=== PATIENT | male | born 1985 | race Two or more races ===

== ENCOUNTER 2017-02-21 15:01 | Emergency (ER) | payer OTHER ==
[~2017-02-21] VITALS: Ht 172.7 cm; Wt 84.8 kg
--- NOTE | 2017-02-21 15:28 | Emergency Room Report ---
History of Present Illness General Chief Complaint: To Be Triaged Present Illness HPI 32 y/o male c/o burn to left hand that occurred at 11:40am at work. States he had spilled hot oil and now has ventura to left hand that is blistering. Better with cold / ice and worse with palpation. No other modifying factors. Not on any medications currently. Allergies: Coded Allergies: No Known Allergies (Unverified , 02/21/17) Patient History Limited by: language barrier Past Medical History: see triage record Past Surgical History: none Pertinent Family History: none Reviewed Nursing Documentation: PMH: Agreed, PSxH: Agreed Review of Systems All Other Systems: negative except mentioned in HPI Physical Exam Sp02 EP Interpretation: reviewed, normal General Appearance: no apparent distress, alert, GCS 15, non-toxic Head: normocephalic, atraumatic Respiratory: normal breath sounds, no respiratory distress, speaking full sentences Cardiovascular #1: regular rate, rhythm, no edema Medical Decision Making PA Attestation Dr. Britton is my supervising physician with whom patient management has been discussed with. Diagnostic Impression: Primary Impression: Burn of hand, left, second degree Qualified Codes: T23.202A - Burn of second degree of left hand, unspecified site, initial encounter ER Course Pt. presents to the ED c/o burn of left hand. Ddx considered but are not limited to abraision, trauma, contusion, 1st degree burn, 2nd degree burn, 3rd degree burn, 4th degree burn Vital signs: are WNL, pt. is afebrile H&PE are most consistent with 2nd degree burn of left hand ORDERS: none required at this time, the diagnosis is clinical ED INTERVENTIONS: Tdap, initially Wet to dry dressing and later changed to Silvadene dressing with bulky gauze dressing at time of discharge. DISCHARGE: At this time pt. is stable for d/c to home. Will provide printed patient care instructions, and any necessary prescriptions. Care plan and follow up instructions have been discussed with the patient prior to discharge. Disposition: HOME, SELF-CARE - Patient is to follow up for wound check in 1-2 days Condition: Stable Scripts Silver Sulfadiazine (SILVADENE) 20 Gm Cream..g. 1 APPLIC TP BID for 5 Days, #20 GM Prov: EVA GODOY 5/14/17 Patient Instructions: Burn Care Additional Instructions: Keep wound clean and dry. Patient advised to follow up for wound check within 1- 2 days. Use medication as directed. Stay well hydrated as ventura need water for healing. Avoid sun exposure to minimize scarring. Patient advised that they can take a shower or bath, but be sure to pat the area dry with a towel afterward. Patient should come back sooner if they experience any red areas that get bigger , more swollen, have pus draining from wound, or if the site becomes more painful. EVA GODOY February 21, 2017 15:28
[2017-02-21] MEDS ORDERED: Tetanus/Diptheria/Pertussis Vaccine 0.5ml Syr IM ONE (15:30)
[2017-02-21] MEDS ORDERED: Silver Sulfadiazine Cream 25gm TOPIC ONE (15:30)
[2017-02-21] MEDS ORDERED: SILVADENE20 GM TP (16:09)
[2017-02-21 18:30] VITALS: BP 143/86
== END 2017-02-21 16:20 | disposition home or self-care (01) ==
LOC: EMR 15:50
DX: T23.202A Burn of second degree of left hand, unspecified site, initial encounter (principal); X10.2XXA Contact with fats and cooking oils, initial encounter; Y93.G3 Activity, cooking and baking; Y99.9 Unspecified external cause status; Z23 Encounter for immunization
CPT/HCPCS: 90471; 90715; 96372; 99283

== ENCOUNTER 2017-02-24 16:34 | Emergency (ER) | payer OTHER ==
[~2017-02-24] VITALS: Ht 172.7 cm; Wt 81.6 kg
[~2017-02-24 16:34] MED LIST: SILVADENE20 GM TP
[2017-02-24 17:58] VITALS: BP 117/86
[2017-02-24 18:07] VITALS: BP 117/86
--- NOTE | 2017-02-24 21:54 | Emergency Room Report ---
History of Present Illness General Chief Complaint: Wound Recheck/Suture Removal Source: Patient Present Illness HPI The patient is a 32-year-old male presenting for wound recheck after experiencing second-degree ventura to the left hand. The patient was seen in this emergency department 3 days prior and given a prescription for Silvadene which he has been using. The patient states he has not had any pain. He has noticed some skin peeling off the area. He denies any bleeding or discharge. He denies numbness or tingling. He denies any other symptoms including nausea, vomiting, fever, chills, rash Allergies: Coded Allergies: No Known Allergies (Unverified , 02/21/17) Patient History Past Medical History: see triage record Pertinent Family History: none Reviewed Nursing Documentation: PMH: Agreed, PSxH: Agreed Nursing Documentation-PMH Past Medical History: No Stated History Review of Systems All Other Systems: negative except mentioned in HPI Physical Exam Vital Signs Date Time Temp Pulse Resp B/P Pulse Ox O2 Delivery O2 Flow Rate FiO2 02/24/17 16:42 98.2 61 16 126/86 99 Room Air Sp02 EP Interpretation: reviewed, normal General Appearance: no apparent distress, alert, GCS 15, non-toxic Head: normocephalic, atraumatic Eyes: bilateral eye PERRL, bilateral eye normal inspection Musculoskeletal: normal range of motion, non-tender Neurologic: alert, oriented x3, responsive, motor strength/tone normal, sensory intact, speech normal Psychiatric: judgement/insight normal, memory normal, mood/affect normal, no suicidal/homicidal ideation Skin: ventura - Second-degree burn to the left hand dorsal aspect. Skin appears hyperpigmented and there is blistering and peeling of the skin. Lymphatic: no adenopathy Medical Decision Making PA Attestation Dr. Bustos is my supervising physician. Patient management was discussed with my supervising physician Diagnostic Impression: Primary Impression: Second degree burn of back of hand Qualified Codes: T23.262D - Burn of second degree of back of left hand, subsequent encounter Additional Impressions: Encounter for wound re-check Encounter for dressing change or suture removal ER Course The patient is a 32-year-old male presenting for wound recheck after experiencing second-degree ventura to the left hand. Differential diagnoses considered but not limited to: First degree burn, second- degree burn, third-degree burn, cellulitis, wound infection PE: NAD. Second-degree burn to the left hand dorsal aspect. Skin appears hyperpigmented and there is blistering and peeling of the skin. No surrounding erythema. The patient will continue to keep the wound clean and apply the Silvadene. Xeroform with a sterile dressing is applied and the patient will followup with primary doctor. Instructions interpreted with Jerri. Last Vital Signs Date Time Temp Pulse Resp B/P Pulse Ox O2 Delivery O2 Flow Rate FiO2 02/24/17 18:07 98.2 78 16 117/86 99 Room Air Status: improved Disposition: HOME, SELF-CARE Condition: Stable Referrals: NOT CHOSEN IPA/MD,REFERRING (PCP) Patient Instructions: Wound Check, Burn Care Additional Instructions: I discussed my findings with the patient. All questions and concerns have been answered. Treatment and medication compliance have been addressed. I advised the patient that they need to follow up with PMD in 3-5 days. Return to ED if symptoms worsen, new symptoms arise, or if needed for any reason. Patient verbalized understanding of discharge instructions. Continue to use the prescribed medications WANG SCALES February 24, 2017 21:54
== END 2017-02-24 18:07 | disposition home or self-care (01) ==
LOC: EMR 17:26
DX: T23.262D Burn of second degree of back of left hand, subsequent encounter (principal); X08.8XXD Exposure to other specified smoke, fire and flames, subsequent encounter
CPT/HCPCS: 99282